=== PATIENT | female | born 1950 | race Caucasian/White ===

== ENCOUNTER → 2019-02-15 | Outpatient (CLI) | payer OTHER ==
[~2019-02-15] MED LIST: REGADENOSON 0.4 MG/5 ML DISP.SYRIN. IV ONE
--- NOTE | 2019-02-15 12:08 | PCVCIMAG ---
APPROVED REPORT Imaging Protocol: Rest Tc-99m/Stress Tc-99m 1 day Study performed: 02/15/2019 08:54:20 Indication: Afib Patient Location: Out-Patient Stress Nurse: Cristin Moseley RN LA Tech:SILVIANO Nails Ht: 5 ft 8 in Wt: 220 lbs BSA: 2.13 m2 HR: 66 bpm BP: 180/78 mmHg BMI: 33.4 Rhythm: Sinus Rhythm, Non-specific ST-T Changes Medical History Medical History: Age, HLP, HTN, Afib, Obesity, DM (non-insulin) Medications: Eliquis, Amioddarone, Crestor Allergies: Sulfa Resting Data Rest SPECT myocardial perfusion imaging was performed in supine position 45 minutes following the intravenous injection of 10.7 mCi of Tc-99m Sestamibi. Time of rest injection: 0840 Date: 02/15/2019 Administration Route: IV Administration Site: Right Hand Pharmacologic Stress Pharmacologic stress test was performed by injecting Regadenoson 0.4 mg IV push over 10-15 seconds immediately followed by the intravenous injection of 31.6 mCi of Tc-99m Sestamibi. Time of stress injection: 1000 Date: 02/15/2019 Administration Route: IV Administration Site: Right Hand Gated Stress SPECT was performed 45 minutes after stress injection. The images were gated to evaluate regional wall motion and calculate left ventricular ejection fraction. Stress Test Details Stress Test: Pharmacologic stress was paired with low level exercise. Reason for pharmacologic stress test: physical limitations. HRMax Heart Rate (APMHR): 153 bpm Resting HR: 66 bpmTarget HR (85% APMHR): 130 bpm Max HR Achieved: 96 bpm % of APMHR: 62 Recovery HR: 76 bpm BP Resting BP: 180/78 mmHg Max BP: 172/88 mmHg Recovery BP: 176/63 mmHg ECG Resting ECG: Sinus Rhythm, Non-specific ST-T Changes Stress ECG: Sinus Rhythm, Non-specific ST-T Changes Arrhythmia: VPC's Recovery ECG: Sinus Rhythm, Non-specific ST-T Changes Clinical Reason for Termination: Completed protocol Stress Symptoms: Dyspnea Symptoms resolved with caffeine. Stress ECG Conclusion 1. Adequate response intravenous Lexiscan 2. Inadequate heart rate response for ECG diagnosis Study Data Post stress, the left ventricular ejection was 71%.. SSS: 9 SRS: 12 SDS: 1 TID = 1.25. Perfusion There is a large area of moderately reduced uptake in the entire segment of the anterior wall which is seen on the stress images as well as the resting images. This area thickens and moves normally and is most consistent with attenuation artifact. Wall Motion Normal left ventricular wall motion. Nuclear Conclusion ECG Findings: non-diagnostic Clinical Findings: negative for ischemia Nuclear Findings: negative for ischemia Exercise Capacity: not assessed Left Ventricular Function: normal 1. Low risk study 2. Post stress left ventricular ejection fraction 71% with normal contractility Interpreted by: Chelsea Alcazar MD Electronically Approved: 02/15/2019 12:07:43 <Conclusion> 1. Adequate response intravenous Lexiscan 2. Inadequate heart rate response for ECG diagnosis
== END | disposition home or self-care (01) ==
LOC: PCVCIMAG 08:17
PROVIDERS: ATTEND Internal Medicine
DX: I48.91 Unspecified atrial fibrillation (principal); I10 Essential (primary) hypertension; E11.9 Type 2 diabetes mellitus without complications; E78.5 Hyperlipidemia, unspecified
CPT/HCPCS: 78452; 93017; A9500; J2785